=== PATIENT | male | born 1980 | race Caucasian/White ===

== ENCOUNTER 2017-06-07 20:13 | Emergency (ER) | payer BC ==
[~2017-06-07] VITALS: Ht 167.6 cm; Wt 77.1 kg
[2017-06-07 20:27] VITALS: TEMP 36.5; Ht 167.6 cm; Wt 77.1 kg
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
[2017-06-07 21:07] LABS: BASO % 0.4 %; BASO ABS # 0.02 K/uL (0-0.2); EOS % 3.8 %; EOS ABS # 0.18 K/uL (0-0.5); HEMOGLOBIN 12.4 g/dL (14.0-18.0); IG# 0.01 K/uL (0.00-0.02); LYMPH % 34.5 %; LYMPH ABS # 1.63 K/uL (1.2-3.4); MEAN CELL VOLUME 92.1 fL (80-100); MEAN CORPUSCULAR HEMOGLOBIN 31.7 pg (25-34); MEAN CORPUSCULAR HGB CONC 34.4 g/dl (32-36); MEAN PLATELET VOLUME 10.2 fL (7.4-10.4); MONO % 14.6 %; MONO ABS # 0.69 K/uL (0.11-0.59); NEUT % 46.5 %; NEUT ABS # 2.19 K/uL (1.4-6.5); PLATELET COUNT 125 K/uL (130-400); RED CELL DISTRIBUTION WIDTH CV 13.4 % (11.5-14.5); RED CELL DISTRIBUTION WIDTH SD 44.6 fL (36.4-46.3); WHITE BLOOD COUNT 4.72 K/uL (4.8-10.8)
[2017-06-07] MEDS ORDERED: DIAZEPAM 5MG TAB PO STA (21:22)
[2017-06-07 21:25] LABS: ALBUMIN 3.2 gm/dl (3.4-5.0); ALT/SGPT 35 U/L (12-78); BLOOD UREA NITROGEN 11 mg/dl (7-18); CALCIUM 8.9 mg/dl (8.5-10.1); CARBON DIOXIDE 28 mmol/L (21-32); CREATININE 0.69 mg/dl (0.60-1.40); GLUCOSE 99 mg/dl (70-99); LIPASE 152 U/L (73-393); POTASSIUM 3.8 mmol/L (3.5-5.1); SODIUM 141 mmol/L (136-145)
[2017-06-07 21:28] LABS: ALKALINE PHOSPHATASE 46 U/L (45-117); AST/SGOT 35 U/L (15-37); TOTAL PROTEIN 5.9 gm/dl (6.4-8.2)
[2017-06-07 21:31] VITALS: BP 143/87; PULSE 75; O2SAT 96
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
[2017-06-07] MEDS ORDERED: DIAZ2TAB PO (21:39)
[2017-06-07] MEDS ORDERED: ESOM20CA PO (21:39)
[2017-06-07] MEDS ORDERED: DIVA500T3 PO ×2 (21:39)
== END 2017-06-07 22:35 | disposition home or self-care (01) ==
LOC: EDBD 20:13 → C.EDC 20:15
DX: S20.219A Contusion of unspecified front wall of thorax, initial encounter (principal); R07.81 Pleurodynia; V89.2XXA Person injured in unspecified motor-vehicle accident, traffic, initial encounter; Y92.410 Unspecified street and highway as the place of occurrence of the external cause; F31.9 Bipolar disorder, unspecified; F10.20 Alcohol dependence, uncomplicated